=== PATIENT | female | born 1985 | race Two or more races ===

== ENCOUNTER 2019-07-24 12:13 | Emergency (ER) | payer SELFPAY ==
[~2019-07-24] VITALS: Ht 149.9 cm; Wt 63.5 kg
[2019-07-24 13:27] VITALS: BP 112/63
--- NOTE | 2019-07-24 18:26 | PHYS DOC ---
Past Medical History Past Medical History: No Pertinent History Past Surgical History: No Surgical History Alcohol Use: None Drug Use: None Adult General Chief Complaint Chief Complaint: FOOT INJURY PAIN HPI HPI Patient is a 33 year old female, accompanied by her , who presents to the emergency department with complaints of bilateral foot pain for 3 weeks. 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 She states that there has been no injury or swelling to her feet. She states the pain is worse when she first gets out of bed or gets up from standing. She denies any numbness, tingling, or weakness of her lower extremities. Patient also complains of dry skin to the left side of her abdomen that is itchy but denies any rash. Patient also denies any new foods, medications, detergents, or fragrances. She currently rates her pain an 8 out of 10 on the pain scale, there are no alleviating factors pain increases with weightbearing. Patient was [place]-speaking only and to see her, and the [employer] paraprofessional interpreter line was used to converse with this patient. She denies any medical or surgical history. Review of Systems Review of Systems Constitutional: Denies fever or chills [] Eyes: Denies redness, or eye pain [] Musculoskeletal: see HPI Integument: see HPI Neurologic: Denies headache, focal weakness or sensory changes [] Complete systems were reviewed and found to be within normal limits, except as documented in this note. Allergies Allergies Allergies Coded Allergies Type Severity Reaction Last Updated Verified No Known Drug Allergies 07/24/19 No Physical Exam Physical Exam Constitutional: Well developed, well nourished, no acute distress, non-toxic appearance. [] HENT: Normocephalic, atraumatic, bilateral external ears normal, nose normal. [] Eyes: PERRLA, EOMI, conjunctiva normal, no discharge. [] Neck: Normal range of motion, no stridor. [] Cardiovascular:Heart rate regular rhythm Lungs & Thorax: Respirations even and unlabored, no retractions, no respiratory distress Skin: Warm, dry, no erythema, dry skin noted to abdomen consistent with dry skin dermatitis Extremities: No bony tenderness, no cyanosis, no clubbing, ROM intact, no edema; tenderness to arch and heels of bilateral feet consistent with plantar fascitis [] Neurologic: Alert and oriented X 3, normal motor function, normal sensory function, no focal deficits noted. [] Psychologic: Affect normal, judgement normal, mood normal. [] Current Patient Data Vital Signs Vital Signs Date Time Temp Pulse Resp B/P (MAP) Pulse Ox O2 Delivery O2 Flow Rate FiO2 07/24/19 13:27 98.2 84 16 112/63 (79) 100 Room Air 98.2 EKG EKG [] Radiology/Procedures Radiology/Procedures [] Course & Med Decision Making Course & Med Decision Making Pertinent Labs and Imaging studies reviewed. (See chart for details) dx: medical screening exam A medical screening exam was performed, patient was found to have no emergent medical condition. The plan of care would've included: Prescription medications. However, the patient eloped after talking with registration. [] [] Dragon Disclaimer Dragon Disclaimer This electronic medical record was generated, in whole or in part, using a voice recognition dictation system. Departure Departure Impression: Primary Impression: Encounter for medical screening examination Disposition: HOME, SELF-CARE (patient eloped after talking to registration) Condition: STABLE Referrals: NO PCP (PCP) ELVIN ANDREW [employer] INTERN Jul 24, 2019 18:26
== END 2019-07-24 14:36 | disposition home or self-care (01) ==
LOC: ER 12:13
DX: M79.671 Pain in right foot (principal); M79.672 Pain in left foot
CPT/HCPCS: 99281